=== PATIENT | female | born 1950 | race Two or more races ===

== ENCOUNTER 2017-03-26 07:59 | Outpatient (CLI) | payer BC ==
--- NOTE | 2017-03-29 17:24 | Diagnostic Imaging Report ---
Indication: PAIN Technique: Noncontrast spiral acquisitions obtained through the temporal bones Multiplanar reconstructions were generated. Total dose length product 41 mGycm. CTDIvol(s) 43 mGy. Radiation dose was minimized using automated exposure control Comparison: Findings: Patient is status post right mastoidectomy. The resection cavity appears to communicate with the middle ear. Residual mastoid air cells are completely opacified.. The middle ear is completely opacified. No gross ossicular destruction. The inner ear structures and internal auditory canals appear unremarkable. The right external auditory canal is unremarkable. No obvious scrotal erosion. Tympanic membrane appears grossly intact. Left external auditory canal, tympanic membrane, middle ear ossicles, inner structures, and internal auditory canal all appear unremarkable. The mastoids are clear on the left. Impression: Evident of prior right mastoidectomy, as described Complete opacification of the right mastoid air cells and middle ear, due to either soft tissue process such as cholesteatoma or fluid. No gross ossicular or scutum erosion Normal left temporal bone A stat preliminary report was previously provided by Dr. Fatima The CT scanner at [facility] is accredited by the [employer] and the scans are performed using protocols designed to limit radiation exposure to as low as reasonably achievable to attain images of sufficient resolution adequate for diagnostic evaluation.
== END 2017-03-26 09:59 | disposition home or self-care (01) ==
LOC: CAT 07:59
DX: H92.03 Otalgia, bilateral (principal)
CPT/HCPCS: 70480

== ENCOUNTER 2017-05-25 09:10 | Outpatient (CLI) | payer MEDICARE ==
[~2017-05-25] VITALS: Ht 160 cm; Wt 93.0 kg
[2017-05-25] MEDS ORDERED: LOSARTAN POTASS25 MG ORAL (10:20)
[2017-05-25] MEDS ORDERED: MONTELUKAST SOD10 MG ORAL (10:20)
[2017-05-25] MEDS ORDERED: ASPIR 8181 MG ORAL (10:20)
[2017-05-25] MEDS ORDERED: LIPITOR80 MG ORAL (10:20)
--- NOTE | 2017-05-25 10:28 | GI Initial Consult Note ---
NidhiRadha Zaldivaroi N.P. 05/25/17 1028: History of Present Illness General Date patient seen: May 25, 2017 Time patient seen: 10:18 Referring physician: OSCAR Reason for Consultation: Routine Colonoscopy Present Illness HPI 67 year old pleasant female referred by Dr. Young presents today for routine colonoscopy. No history of endoscopy or colonoscopy. C/o of mild gerd. Has occasional constipation, but is relieved with OTC products. Denies any unintentional weight loss or changes in dietary habits. No signs of abuse or neglect. Patient is not fall risk. 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 Family History Narrative Mother >> breast CA Social History: Denies: smoking, alcohol use, drug use, other Review of Systems All Other Systems: negative except mentioned in HPI Physical Exam T 98.3 BP 173/80 P 98 95 RA HT 5'3 WT 205.5 Sp02 EP Interpretation: reviewed, normal General Appearance: well appearing, no apparent distress, alert, obese Head: normocephalic EENT: PERRL/EOMI, normal ENT inspection Neck: supple Respiratory: normal breath sounds, no respiratory distress Cardiovascular: normal rate Gastrointestinal: normal inspection, non tender, soft, normal bowel sounds, non -distended Rectal: deferred Genitourinary: no CVA tenderness Musculoskeletal: normal inspection, back normal Neurologic: normal inspection, alert, oriented x3, responsive Psychiatric: normal inspection, judgement/insight normal, memory normal Skin: normal inspection, normal color, no rash, warm/dry, palpation normal, well hydrated Lymphatic: normal inspection, no adenopathy GI: Plan Problems: (1) Colonoscopy planned (2) HTN (hypertension) (3) Asthma (4) [place] (hard of hearing) Plan EGD/colonoscopy pending schedule, patient to call office for appointment date. - CLD & (Nulytely/Suprep/Movi-Prep) prep instructions given and acknowledged by patient. - NPO @ [place] day prior procedure explained. Seen with Dr. Tapia. Thank you for this patient referral. CT TAPIA 05/26/17 0904: History of Present Illness Present Illness Home Meds Reported Medications Aspirin* (ASPIR 81*) 81 Mg Tablet.dr, 81 MG ORAL DAILY, TAB 05/25/17 Montelukast Sodium* (MONTELUKAST SODIUM*) 10 Mg Tablet, 10 MG ORAL DAILY, TAB 05/25/17 Atorvastatin (Lipitor) 80 Mg Tablet, 80 MG ORAL DAILY, TAB 0 Refills 05/25/17 Losartan Potassium* (LOSARTAN POTASSIUM*) 25 Mg Tablet, 25 MG ORAL DAILY, TAB 05/25/17 Allergies: Coded Allergies: No Known Allergies (Unverified , 05/25/17) GI: Plan Plan The patient was seen and examined at bedside and all new and available data was reviewed in the patients chart. I agree with the above findings, impression and plan. (Patient seen earlier today. Signature stamp does not reflect patient encounter time.). - MD Nidhi Sears Anh Farhat Rush May 25, 2017 10:28 CT TAPIA May 26, 2017 09:04
[2017-05-25 15:16] VITALS: BP 173/80
== END 2017-05-25 09:42 | disposition home or self-care (01) ==
LOC: PAN 09:10
DX: I10 Essential (primary) hypertension (principal); J45.909 Unspecified asthma, uncomplicated; K21.9 Gastro-esophageal reflux disease without esophagitis; Z79.82 Long term (current) use of aspirin; K59.00 Constipation, unspecified; E78.5 Hyperlipidemia, unspecified; Z80.3 Family history of malignant neoplasm of breast
CPT/HCPCS: 99201

== ENCOUNTER 2019-01-03 09:06 | Outpatient (CLI) | payer MEDICARE ==
[~2019-01-03 09:06] MED LIST: ASPIR 8181 MG ORAL; LIPITOR80 MG ORAL; LOSARTAN POTASS25 MG ORAL; MONTELUKAST SOD10 MG ORAL
--- NOTE | 2019-01-03 12:49 | Diagnostic Imaging Report ---
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 Patient presented with bilateral hearing loss Technique: The brain was imaged in a 1.5 Shelile magnet. Sequences obtained include sagittal and axial T1 FLAIR, axial T2 fast spin echo with fat saturation, axial T2 FLAIR, diffusion and ADC map. Gadolinium-enhanced axial and coronal T1 FLAIR obtained also. Comparison: MRI IACs performed 10/04/2015 (preop). Postop CT temporal bones 03/26/2017. Findings: Postop changes from a previous right mastoidectomy are noted. There is T2 hyperintense fluid signal again demonstrated within the right mastoid air cells including the middle ear canal. Similar findings are seen postoperatively on CT temporal bones 03/26/2017. There is mucosal thickening within the paranasal sinuses. There is mild prominence of the sulci, ventricles, and basal cisterns consistent with atrophy. A few scattered, nonspecific T2 hyperintense foci noted within white matter. This may be due to chronic small vessel disease. No abnormal enhancement is identified. There is no restricted diffusion. Hill-white differentiation is normal. There is no mass effect, midline shift, edema, or hemorrhage. There are no abnormal extra-axial or intra-axial fluid collections. The corpus callosum appears unremarkable. Empty sella noted. The brainstem and cerebellum are unremarkable. Bone marrow signal within the visualized osseous structures appears age appropriate. Impression: No acute intracranial findings. Postsurgical changes involving the mastoid portion of the right temporal bone with residual mastoiditis/middle ear fluid. More detailed evaluation with CT or MRI could be performed. Mild sinusitis noted. Age-related findings including atrophy and evidence of chronic small vessel disease involving white matter tracts. Empty sella Note: More detailed evaluation with regard to the middle and inner ear could be performed with MRI of the IACs or CT temporal bone.
== END 2019-01-03 11:06 | disposition home or self-care (01) ==
LOC: MRI 09:06
DX: H90.5 Unspecified sensorineural hearing loss (principal); D18.09 Hemangioma of other sites; J32.9 Chronic sinusitis, unspecified; I73.9 Peripheral vascular disease, unspecified
CPT/HCPCS: 70553; A9585

== ENCOUNTER 2019-01-31 09:51 | Outpatient (CLI) | payer MEDICARE ==
[2019-01-31 10:05] VITALS: BP 153/89
--- NOTE | 2019-01-31 11:04 | General Progress Note ---
Assessment/Plan Problem List: (1) Colonoscopy planned SNOMED: 680815049 (2) [place] (hard of hearing) ICD Codes: H91.90 - Unspecified hearing loss, unspecified ear SNOMED: 63791665 (3) HTN (hypertension) ICD Codes: I10 - Essential (primary) hypertension SNOMED: 50545481 (4) Asthma ICD Codes: J45.909 - Unspecified asthma, uncomplicated SNOMED: 330117783 Assessment/Plan: Problems: (1) Colonoscopy planned (2) HTN (hypertension) (3) Asthma (4) [place] (hard of hearing) plan EGD and colonoscopy next week Subjective ROS Limited/Unobtainable: Yes Allergies: Coded Allergies: No Known Allergies (Unverified , 05/25/17) Objective General Appearance: alert EENT: normal ENT inspection Neck: supple Cardiovascular: normal rate Respiratory/Chest: decreased breath sounds Abdomen: normal bowel sounds, non tender, soft Extremities: non-tender Vinod Cooper MD Jan 31, 2019 11:04
== END 2019-01-31 11:51 | disposition home or self-care (01) ==
LOC: PAN 09:51
DX: J45.909 Unspecified asthma, uncomplicated (principal); H91.90 Unspecified hearing loss, unspecified ear; I10 Essential (primary) hypertension

== ENCOUNTER 2019-02-08 08:11 | Day surgery (SDC) | payer MEDICARE ==
[~2019-02-08] VITALS: Ht 160 cm; Wt 90.7 kg
[2019-02-08] VITALS (8 sets, daily range): BP systolic 119–155; BP diastolic 65–80
--- NOTE | 2019-02-08 06:03 | Anethesia Preoperative Eval ---
Anesthesia Pre-op PMH/ROS General Date of Evaluation: Feb 08, 2019 Time of Evaluation: 06:01 Anesthesiologist: jennie ASA Score: ASA 3 Mallampati Score Class I : Soft palate, uvula, fauces, pillars visible Class II: Soft palate, uvula, fauces visible Class III: Soft palate, base of uvula visible Class IV: Only hard plate visible Mallampati Classification: Class II Surgeon: sallie Diagnosis: gerd, hx/o tumor removal Surgical Procedure: egd/colonoscopy Anesthesia History: none Family History: no anesthesia problems Allergies: Coded Allergies: No Known Allergies (Unverified , 05/25/17) Medications: see eMAR Patient NPO?: Yes Past Medical History Cardiovascular: Reports: HTN Pulmonary: Reports: asthma HEENT: Reports: [place] (L), [place] (R) Other: obesity Anesthesia Pre-op Phys. Exam Physician Exam Last Vital Signs Date Time Temp Pulse Resp B/P (MAP) Pulse Ox O2 Delivery O2 Flow Rate FiO2 02/08/19 09:15 98.3 91 20 155/76 95 Room Air Constitutional: NAD Neurologic: CN 2-12 intact Cardiovascular: RRR Respiratory: CTA Gastrointestinal: S/NT/ND Airway Exam Mallampati Score: Class II MO: limited Neck: flexible TMD: 2fb ROM: limited Anesthesia Pre-op A/P Studies Pre-op Studies: EKG - nsr Risk Assessment & Plan Assessment: asa3 Plan: mac Status Change Before Surgery: No Pre-Antibiotics Drug: Sharonda Gannon MD Feb 08, 2019 06:03
[~2019-02-08 08:11] MED LIST changes: +Atropine Inj 1mg/10ml Syr IV PRN; +DiphenhydrAMINE 50mg/ml Inj IVP PRN; +LR 1000ml 1,000 ML IVLG SCH; +Midazolam 2mg/2ml Inj IVP PRN; +fentaNYL 100 mcg/2 mL IV PRN
--- NOTE | 2019-02-08 09:17 | Pre-Procedure Note/Attestation ---
Pre-Procedure Note/Attestation Complete Prior to Procedure Planned Procedure: not applicable Procedure Narrative: esophagogastroduodenoscopy and colonoscopy Indications for Procedure Pre-Operative Diagnosis: GERD, screening colon Attestation I attest that I discussed the nature of the procedure; its benefits; risks and complications; and alternatives (and the risks and benefits of such alternatives ), prior to the procedure, with the patient (or the patient's legal territory account representative). I attest that, if there was a reasonable possibility of needing a blood transfusion, the patient (or the patient's legal territory account representative) was given the [facility] standardized written summary, pursuant to the [place] Blood Safety Act ([place] Health and Safety Code # 1645, as amended). I attest that I re-evaluated the patient just prior to the surgery and that there has been no change in the patient's H&P, except as documented below: Vinod Cooper MD Feb 08, 2019 09:17
--- NOTE | 2019-02-08 09:17 | Short Stay Surgery H&P ---
History of Present Illness History of Present Illness Chief Complaint see recent office note HPI Veronica Dodge is a 68 year old female who was admitted on for Gerd, Hx Of Tumor Removal Patient History Allergies: Coded Allergies: No Known Allergies (Unverified , 05/25/17) Medication History Scheduled Aspirin* (Aspir 81*), 81 MG ORAL DAILY, (Reported) Atorvastatin (Lipitor), 80 MG ORAL DAILY, (Reported) Losartan Potassium* (Losartan Potassium*), 25 MG ORAL DAILY, (Reported) Montelukast Sodium* (Montelukast Sodium*), 10 MG ORAL DAILY, (Reported) Physical Exam Vital Signs Last Vital Signs Date Time Temp Pulse Resp B/P (MAP) Pulse Ox O2 Delivery O2 Flow Rate FiO2 02/08/19 09:15 98.3 91 20 155/76 95 Room Air Plan Attestation Are the patient's medical conditions optimized for surgery? Vinod Cooper MD Feb 08, 2019 09:17
[2019-02-08] MEDS ORDERED: Propofol 200mg/20ml IV ONE (10:00)
[2019-02-08] MEDS ORDERED: NS 500ML ONE (10:00)
[2019-02-08] MEDS ORDERED: Lidocaine 1% MPF 10mg/ml 5ml ONE (10:00)
--- NOTE | 2019-02-08 10:40 | Endoscopy Procedure Note ---
Endoscopy Procedure Note General Indication for Procedure: screening colon, GERD Procedures Performed: EGD, colonoscopy Operative Findings/Diagnosis: 3 polyps Specimen: yes Pt Tolerated Procedure Well: Yes Estimated Blood Loss: none Anesthesia Anesthesiologist: jackie Anesthesia: MAC Inserted Devices Implant(s) used?: No Quality Quality of Bowel Preparation: Good Did scope reach the cecum?: Yes Was there any complications?: No GI Core Measures 50 yrs or older w/o bx or poly: No 10yrs. F/U recommended: Yes If not recommended, why?: Above average risk 18 years or older w/prev. colo: No Vinod Cooper MD Feb 08, 2019 10:40
--- NOTE | 2019-02-08 11:31 | Immediate Post-Op Evaluation ---
Immediate Post-Op Evalulation Immediate Post-Op Evalulation Procedure: egd/colonoscopy w/bx Date of Evaluation: Feb 08, 2019 Time of Evaluation: 10:57 IV Fluids: 300ml 0.9ns Blood Products: none Estimated Blood Loss: neglgible Blood Pressure Systolic: 105 Blood Pressure Diastolic: 71 Pulse Rate: 81 Respiratory Rate: 18 O2 Sat by Pulse Oximetry: 98 Temperature (Fahrenheit): 97.3 Pain Score (1-10): 0 Nausea: No Vomiting: No Complications none Patient Status: awake, reacts, patent Hydration Status: adequate Drug: Sharonda Gannon MD Feb 08, 2019 11:31
--- NOTE | 2019-02-08 11:33 | 48 Hour Post Anesthesia Eval ---
Post Anesthesia Evaluation Procedure: egd/colonoscopy w/bx Date of Evaluation: Feb 08, 2019 Time of Evaluation: 10:59 Blood Pressure Systolic: 122 0: 65 Pulse Rate: 83 Respiratory Rate: 18 Temperature (Fahrenheit): 97.3 O2 Sat by Pulse Oximetry: 98 Airway: patent Nausea: No Vomiting: No Pain Intensity: 0 Hydration Status: adequate Cardiopulmonary Status: stable Mental Status/LOC: patient returned to baseline Post-Anesthesia Complications: none Follow-up care needed: N/A Sharonda Cardona MD Feb 08, 2019 11:33
--- NOTE | 2019-02-08 17:15 | Procedure Note ---
DATE OF PROCEDURE: 02/08/2019 SURGEON: Vinod Cooper M.D. REFERRING PHYSICIAN: Alexis Young M.D. PROCEDURE: Upper endoscopy with biopsy and colonoscopy with biopsy and snare polypectomy. ANESTHESIA: Per Dr. Kelly. INSTRUMENT: Olympus adult flexible upper endoscope and colonoscope. INDICATIONS: Screening colonoscopy evaluation and chronic GERD. REASON FOR PROCEDURE: The procedure, risks, benefits, and possible consequences, including hemorrhage, aspiration, perforation and infection, and alternative treatments, were explained to the patient/legal guardian by Dr. Vinod Cooper and the patient/legal guardian understood and accepted these risks. PROCEDURE IN DETAIL: After informed consent was obtained and the patient was adequately sedated, Olympus upper endoscope was advanced from mouth into the second portion of the duodenum and retroflexion was performed in the stomach. The patient has normal upper endoscopic examination. There was evidence of some mild gastritis. Random biopsy from antrum was obtained to rule out H. pylori infection. At this time, the upper endoscope was retrieved and the patient was turned over for colonoscopy. First rectal exam was performed which was positive for internal hemorrhoids. Then, the scope was advanced from rectum into the cecum documented by appendix orifice, ileocecal valve, and right upper quadrant palpation. Quality was fair. I would say about 5% of the colonic mucosa was not examined due to this colonic prep. The patient had total of three polyps, 2 in transverse and 1 in the rectum. One of the transverse and rectum was small, removed with the cold biopsy forceps technique. There was a large polyp in the transverse colon, measured roughly about, I would say about a centimeter, removed in a piecemeal fashion in two separate pieces with a hot snare polypectomy technique. The patient had diverticulosis, both in the right and left colon. Retroflexion of rectum showed evidence of internal hemorrhoids. SUMMARY OF FINDINGS: 1. Gastritis, status post biopsy. 2. Three colonic polyps removed, see above for details. 3. Internal hemorrhoids. 4. Diverticulosis. RECOMMENDATIONS: Follow up pathology and treat accordingly. We will recommend repeat colonoscopy no later than 3 years. I want to thank Dr. Alexis Young for this kind referral. Vinod Donato Cooper DR: BARBARA JOB#: [id number] CC: Alexis Young M.D.; Fax#: [phone]
--- NOTE | 2019-02-13 13:54 | Cardiology Report ---
APPROVED REPORT EKG Measurement Heart [id number] Normal sinus rhythm Normal ECG
== END 2019-02-08 12:05 | disposition home or self-care (01) ==
LOC: GAS 08:11
DX: Z12.11 Encounter for screening for malignant neoplasm of colon (principal); K21.9 Gastro-esophageal reflux disease without esophagitis; K29.50 Unspecified chronic gastritis without bleeding; K63.5 Polyp of colon; K64.8 Other hemorrhoids; K57.90 Diverticulosis of intestine, part unspecified, without perforation or abscess without bleeding; Z79.82 Long term (current) use of aspirin; Z79.899 Other long term (current) drug therapy; I10 Essential (primary) hypertension; E66.9 Obesity, unspecified; Z68.35 Body mass index [BMI] 35.0-35.9, adult; D12.3 Benign neoplasm of transverse colon
CPT/HCPCS: 43239; 45380; 45385; 93005; J2704; J7040; 94003; 94150

== ENCOUNTER 2019-03-01 13:32 | Outpatient (CLI) | payer MEDICARE ==
[~2019-03-01 13:32] MED LIST changes: -Atropine Inj 1mg/10ml Syr IV PRN; -DiphenhydrAMINE 50mg/ml Inj IVP PRN; -LR 1000ml 1,000 ML IVLG SCH; -Midazolam 2mg/2ml Inj IVP PRN; -fentaNYL 100 mcg/2 mL IV PRN
[2019-03-01 13:46] VITALS: BP 130/60
--- NOTE | 2019-03-01 14:23 | General Progress Note ---
Assessment/Plan Assessment/Plan: SUMMARY OF FINDINGS: 1. Gastritis, status post biopsy. 2. Three colonic polyps removed, see above for details. 3. Internal hemorrhoids. 4. Diverticulosis. GERD add ppi repeat colon in 3 years Subjective ROS Limited/Unobtainable: Yes Allergies: Coded Allergies: No Known Allergies (Unverified , 05/25/17) Objective General Appearance: alert EENT: normal ENT inspection Neck: supple Cardiovascular: normal rate Respiratory/Chest: lungs clear Abdomen: normal bowel sounds, non tender, soft Extremities: non-tender Vinod Cooper MD Mar 01, 2019 14:23
== END 2019-03-01 15:32 | disposition home or self-care (01) ==
LOC: PAN 13:32
DX: K29.70 Gastritis, unspecified, without bleeding (principal); K63.5 Polyp of colon; K64.8 Other hemorrhoids; K57.90 Diverticulosis of intestine, part unspecified, without perforation or abscess without bleeding; K21.9 Gastro-esophageal reflux disease without esophagitis
CPT/HCPCS: 99212

== ENCOUNTER → 2019-12-11 | Outpatient (CLI) | payer MEDICARE ==
[~2019-12-11] MED LIST changes: +OMEPRAZOLE40 M1 ORAL
--- NOTE | 2019-12-11 17:02 | Diagnostic Imaging Report ---
Indication: History of right glomus tympanicum tumor removal in 2018. Evaluation for recurrence Technique: Noncontrast spiral acquisitions obtained through the temporal bones Multiplanar high-resolution reconstructions were generated. Total dose length product 324 mGycm. CTDIvol(s) 28 mGy. Radiation dose was minimized using automated exposure control Comparison: 03/26/2017 Findings: Again demonstrated is evidence of resection of a portion of the portion of the mastoid bone, superoposterior to the external auditory canal this was previously filled with material, presumably fluid. The area of resection is now mostly filled with air, appears to freely communicate with the external auditory canal. There is some soft tissue at the periphery of the resection cavity which appears unchanged in extent from the previous study. The middle ear ossicles are surrounded by material, but there appears to be less material surrounding the ossicles than was demonstrated previously, possibly reflecting interim drainage of some fluid. Some material is also seen in the medial middle ear cavity, appearing unchanged. The bony margins surrounding the resection cavity appears somewhat indistinct, but this appearance is unchanged from the prior exam. There is slightly increased ossification at the periphery of the resection cavity. Overall, the margins other resection cavity appear more closely apposed than previously. The remaining mastoid air cells are opacified. The external auditory canal is unchanged in appearance. Middle ear structures are unchanged in appearance and intact. The internal auditory canal is unchanged in appearance. Unchanged appearance of the scutum The left external auditory canal, tympanic membrane, middle ear structures, inner ear structures, and internal auditory canal all appear unremarkable. The mastoid air cells are clear. Impression: Evidence of prior partial right mastoidectomy, reportedly for history of glomus tumor, that lesion demonstrated on prior MRI MRI of 10/04/2015. Since the most recent postoperative CT scan of 03/26/2017, there is evidence of interim replacement of much of the previously demonstrated material within the resection cavity with air (resection cavity apparently in free communication with the external auditory canal) and overall decrease in size of the resection cavity. No unenhanced CT findings to suggest recurrence. No evidence of interim destructive changes. Unremarkable left temporal bone The CT scanner at [facility] is accredited by the [employer] and the scans are performed using protocols designed to limit radiation exposure to as low as reasonably achievable to attain images of sufficient resolution adequate for diagnostic evaluation.
--- NOTE | 2019-12-11 17:29 | Diagnostic Imaging Report ---
Indication: History of right mastoid region glomus tumor removal in 2018. Head pain. Technique: sagittal T1 fast spin echo, axial T1 and T2 FLAIR PROPELLER, axial T2 FS PROPELLER, T2* GRE, axial diffusion weighted images, post contrast axial, sagittal, and coronal T1 FLAIR PROPELLER images. ADC and exponential ADC maps generated Comparison: 01/03/2019 Findings: . No abnormal areas of restricted diffusion to suggest acute infarction. No acute hemorrhage or edema. No mass effect nor midline shift. No abnormal contrast enhancement. There is minimal age-related enlargement of the ventricles and extra axial CSF spaces. There is minimal periventricular confluent and punctate high T2 signal, slightly more extensive than previously.. Right maxillary sinus polyp versus mucous retention cyst, left maxillary sinus polyp versus mucous retention cyst, and extensive ethmoid sinus disease is again noted. Empty sella incidentally noted. Please refer to separate temporal bone MRI report as regards right mastoid findings. Impression: Chronic and age-related changes Postsurgical changes of the right mastoid-please refer to separate temporal bone MRI report Chronic and age-related changes, as described Sinus disease
--- NOTE | 2019-12-11 19:24 | Diagnostic Imaging Report ---
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 Follow-up and evaluate for recurrence. Head pain. COMPARISON: MR brain 12/11/2019, 01/03/2019. CT temporal bones 12/07/2019, 03/26/2017 and MRI IACs 10/04/2015 TECHNIQUE: MR examination of the IACs include axial T2, and small [id number] axial and coronal T1, T2 sequences. Following administration of gadolinium, additional axial and coronal T1 images obtained. FINDINGS: There is redemonstration of postoperative changes in the region of the right temporal bones. Resection cavity is again noted. There is fluid characterized by high T2 signal noted within the residual right mastoid air cells . In the region of the right middle ear, there is soft tissue intensity noted on T1 images around the auditory ossicles. This is also identified on earlier CTs. On postcontrast images, slight enhancement is noted of the soft tissue structure. Size is approximately 9 x 6 mm. In comparison to earlier MRI brain from today and prior MRI brain from 2018, the same enhancing soft tissue is identified and given the difference in technique between an MRI of the IACs versus MRI of the brain, there does not appear to be significant change. In comparing to the preoperative MRI of the IACs from 2015, the original enhancing mass was identified in the same location. No other mass or mass effect identified. The right internal auditory canal, right vestibule and cochlea region otherwise appear unremarkable. IMPRESSION: There is some enhancing soft tissue identified in the right middle ear around the right auditory ossicles. This finding is noted on prior CTs as well. It occurs at the site of the original primary mass seen on MRI of the IACs from 2016. As such, it is difficult to differentiate between post surgical enhancing granulation tissue versus residual or recurrent enhancing tumor. Given the apparent lack of change between the 2018 and 2019 MRI of the brain, granulation tissue is favored although slow growing residual or recurrent tumor cannot be entirely excluded. Recommend continued close follow-up with MRI of the IACs with and without contrast for maximal spatial resolution.
== END | disposition home or self-care (01) ==
LOC: CAT 13:09
DX: R51 Headache (principal); J32.2 Chronic ethmoidal sinusitis
CPT/HCPCS: 70480; 70543; 70553; A9585